=== PATIENT | male | born 1930 | race Caucasian/White ===

== ENCOUNTER 2017-11-17 11:18 | Outpatient (CLI) | payer MEDICARE ==
[2017-11-17 12:17] LABS: Hemoglobin 12.5 g/dL (14.0-18.0); Mean Corpuscular HGB CONC 33.4 g/dL (32.0-36.0); Mean Corpuscular Hemoglobin 29.5 pg (27.0-31.0); Mean Corpuscular Volume 88.1 fl (80.0-94.0); Mean Platelet Volume 8.2 fL (7.4-10.4); Platelet Count 138 thou/uL (130-400); RBC Distribution Width 13.5 % (11.5-14.5); Red Blood Cell (RBC) Count 4.24 mill/uL (4.70-6.10); White Blood Cell (WBC) Count 6.1 thou/uL (4.8-10.8)
[2017-11-17 12:37] LABS: Anion Gap 11 mmol/L (10-20); BUN (Urea Nitrogen) 16 mg/dL (8.4-25.7); Calc. Creatinine Clearance 0 mL/min (70-130); Calcium 9.8 mg/dL (7.8-10.44); Carbon Dioxide 25 mmol/L (23-31); Chloride 107 mmol/L (98-107); Estimated GFR-MDRD 45; Glucose 86 mg/dL (83-110); Potassium 4.2 mmol/L (3.5-5.1); Sodium 139 mmol/L (136-145)
== END 2017-11-17 11:19 | disposition home or self-care (01) ==
LOC: LABBT 11:18
PROVIDERS: ATTEND Internal Medicine Cardiovascular Disease
DX: Z01.812 Encounter for preprocedural laboratory examination (principal); I48.0 Paroxysmal atrial fibrillation
CPT/HCPCS: 80048; 85027

== ENCOUNTER 2017-11-23 05:47 | Day surgery (SDC) | payer MEDICARE ==
[2017-11-17 11:41] VITALS: BMI 36.8
[2017-11-23] MEDS ORDERED: PROPOFOL 40 ML ONE (07:52)
--- NOTE | 2017-11-23 12:30 | ECHO ---
TRANSESOPHAGEAL ECHOCARDIOGRAM: DATE OF PROCEDURE: 11/23/2017. INDICATION FOR PROCEDURE: This is an 87-year-old gentleman who has a history of intermittent atrial fibrillation in the past, h as undergone ablation, and also has a Watchman device placed. He was advised to undergo a transesoph ageal echocardiogram for evaluation of the Watchman to ensure it still remains stable and there is no evidence of clot and no evidence of any other structural abnormalities associated with the device. PROCEDURE: He was taken to the recovery area where he underwent short-acting propofol. Using the transesophagea l probe, this was easily passed down the distal esophagus after he was given a short acting propofol anesthesia. 1. Normal left ventricular systolic function, ejection fraction is 50-55% and may actually be better . The left atrium is dilated, moderately to severely. There is a functional Watchman in the left at rial appendage. There is no leak around the edges. There is no evidence of structural abnormalities and no evidence of thrombus formation. 2. Marked to severe mitral valve regurgitation. 3. Mild tricuspid valve regurgitation. 4. No evidence of aortic valve regurgitation. The patient tolerated the procedure well. IMPRESSION: 1. A normally functioning Watchman device in the left atrial appendage without evidence of structura l abnormalities. No evidence of leaks and no evidence of thrombus formation. 2. Normal left ventricular systolic function. 3. Moderate to severe mitral valve regurgitation. 4. Mild tricuspid valve regurgitation. 5. Left atrial dilatation. POS: [facility] [place]
[2017-11-23] MEDS ORDERED: PROPOFOL 200 MG/20 ML VIAL ONE (16:12)
--- NOTE | 2017-11-23 18:58 | DIS ---
DATE OF OUTPATIENT PROCEDURE: 11/23/2017 DIAGNOSES: He was seen in the outpatient facility to undergo elective transesophageal echocardiogram for evaluation of the Watchman device. His other admitting diagnoses include, 1. History of atrial fibrillation in the past. He is on ablation. He has had a Watchman device rosalina paul. 2. History of coronary artery disease. 3. Dyslipidemia. 4. Hypertension. 5. Pacemaker insertion. 6. History of angioplasty and stent placement of the coronary arteries. 7. Chronic kidney disease. 8. Dyslipidemia. 9. Complete heart block for pacemaker insertion. 10. Status post Watchman placement. DISCHARGE DIAGNOSES: 1. History of atrial fibrillation in the past. He is on ablation. He has had a Watchman device rosalina paul. 2. History of coronary artery disease. 3. Dyslipidemia. 4. Hypertension. 5. Pacemaker insertion. 6. History of angioplasty and stent placement of the coronary arteries. 7. Chronic kidney disease. 8. Dyslipidemia. 9. Complete heart block for pacemaker insertion. 10. Status post Watchman placement. PROCEDURE IN HOSPITAL: Included transesophageal echocardiogram. DISCHARGE MEDICATIONS: Same as his admission medications include, Lasix 20 mg a day, Zyrtec, metopro lol 50 mg b.i.d., Multaq 400 mg b.i.d., terazosin 2 mg q. day, aspirin 81 mg a day, Plavix 75 mg a da y, meclizine, potassium 10 mEq q. day, Zocor 20 mg q. day, clonidine 0.1 mg b.i.d. or q. 4-6 hours p. r.n. for elevated blood pressure, vitamin B12 of 1000 mcg q. day, levothyroxine 25 mcg q. day, and vi tamin D. His followup will be with me in the office in the next 3 months or so. 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 HOSPITAL COURSE: This is a very pleasant 87-year-old gentleman who underwent [place] procedure in . After the procedure, 3 months later, he has a small leak around the Watchman device. This dietz s since closed, I did not see any leaks at this time. He underwent a transesophageal echocardiogram today without any problems. He will continue his medications. He also was noted to be in sinus rhyt hm today. There were no difficulties or complications. He will be seen in the office in the next 3 months or so. If he remains stable, he will be discharged home in the next couple of hours.
== END 2017-11-23 10:02 | disposition home or self-care (01) ==
LOC: CCL 05:47
PROVIDERS: ATTEND Internal Medicine Cardiovascular Disease
DX: I48.0 Paroxysmal atrial fibrillation (principal); I12.9 Hypertensive chronic kidney disease with stage 1 through stage 4 chronic kidney disease, or unspecified chronic kidney disease; N18.9 Chronic kidney disease, unspecified; I25.10 Atherosclerotic heart disease of native coronary artery without angina pectoris; E78.5 Hyperlipidemia, unspecified; I42.9 Cardiomyopathy, unspecified; Z95.0 Presence of cardiac pacemaker; Z98.890 Other specified postprocedural states; Z95.818 Presence of other cardiac implants and grafts; Z85.828 Personal history of other malignant neoplasm of skin
CPT/HCPCS: 93312; J2704

== ENCOUNTER 2021-02-06 19:51 | Emergency (ER) | payer MEDICARE ==
[2021-02-06 20:55] LABS: #Eosinphils 0.1 thou/uL (0.0-0.7); #Lymphocytes 1.3 thou/uL (1.20-3.40); #Monocytes 0.7 thou/uL (0.11-0.59); #Neutrophils 4.6 thou/uL (1.40-6.50); %Basophils 0.1 % (0.0-1.0); %Eosinophils 0.8 % (0.0-10.0); %Lymphocytes 19.4 % (21.0-51.0); %Monocytes 10.9 % (0.0-10.0); %Neutrophils 68.8 % (42.0-75.0); Hemoglobin 8.8 g/dL (14.0-18.0); Mean Corpuscular HGB CONC 34.6 g/dL (32.0-36.0); Mean Corpuscular Volume 92.4 fL (78.0-98.0); Mean Platelet Volume 8.7 fL (7.4-10.4); Platelet Count 114 thou/uL (130-400); RBC Distribution Width 19.9 % (11.5-14.5); Red Blood Cell (RBC) Count 2.76 mill/uL (4.70-6.10); White Blood Cell (WBC) Count 6.6 thou/uL (4.8-10.8)
[2021-02-06 21:15] LABS: Bilirubin Negative (Negative); Blood, Urine Negative (Negative); Clarity Clear (Clear); Glucose, Urine (Dipstick) Normal (Negative); Ketone, Urine Negative (Negative); Leukocyte Negative Leu/uL (Negative); Nitrite Negative (Negative); Protein, Urine (Dipstick) Negative (Neg-Trace); Specific Gravity, Urine 1.015 (1.002-1.036); Urobilinogen Normal mg/dL (Less than 2)
[2021-02-06 21:16] LABS: ALT (SGPT) 19 U/L (8-55); AST (SGOT) 28 U/L (5-34); Albumin 2.8 g/dL (3.4-4.8); Alkaline Phosphatase 105 U/L (40-110); Anion Gap 9 mmol/L (10-20); BUN (Urea Nitrogen) 14 mg/dL (8.4-25.7); Bilirubin, Total 0.8 mg/dL (0.2-1.2); Calc. Creatinine Clearance 0 mL/min (70-130); Calcium 7.8 mg/dL (7.8-10.44); Carbon Dioxide 24 mmol/L (23-31); Chloride 106 mmol/L (98-107); Globulin 2.2 g/dL (2.4-3.5); Glucose 112 mg/dL (83-110); Potassium 3.8 mmol/L (3.5-5.1); Sodium 135 mmol/L (136-145)
[2021-02-06] MEDS ORDERED: Furosemide 40 MG/4 ML VIAL ONE (22:34)
== END 2021-02-06 23:59 | disposition home or self-care (01) ==
LOC: ERS 19:51
DX: I11.0 Hypertensive heart disease with heart failure (principal); I50.9 Heart failure, unspecified; I48.91 Unspecified atrial fibrillation; I25.10 Atherosclerotic heart disease of native coronary artery without angina pectoris; D64.9 Anemia, unspecified; Z87.891 Personal history of nicotine dependence
CPT/HCPCS: 36415; 71045; 80053; 81003; 83880; 84484; 85025; 93005; 96374; J1940